=== PATIENT | male | born 1965 | race Two or more races ===

== ENCOUNTER 2025-04-14 12:35 | Day surgery (SDC) | payer MEDICAID, SELFPAY ==
--- NOTE | 2025-04-13 12:53 | ESHP_ITS ---
RE: ROGER QUEZADA : 1965 DATE OF ADMISSION: 04/14/2025 HISTORY OF PRESENT ILLNESS: This patient is a 60-year-old male who was seen for colonoscopy. The patient was seen in [facility] in February. The patient denies any history of colon cancer in the family. He does have some occasional rectal bleeding. The patient denies any hemorrhoids. His other medical problem consists of diabetes and hypertension. PAST SURGICAL HISTORY: None. SOCIAL HISTORY: The patient is working in a restaurant. PHYSICAL EXAMINATION: GENERAL: Well-built, well-nourished male who appeared to be in his stated age. HEENT: Head is normal. Eyes, ears, nose, and throat are normal. NECK: Normal. Thyroid normal. LUNGS: Revealed good breath sounds on both sides. No wheezing or rales. HEART: Heart showed sinus rhythm. No murmurs. VITAL SIGNS: Revealed that he is about 5 feet 4 inches tall, weighing 180 pounds, and BMI is 30.18. Temperature was 98.4, pulse 102, BP was 147/93. IMPRESSION: 1. Encounter for malignant neoplasm. 2. Diabetes. 3. Hypertension. COURSE OF ACTION: I advised the patient to undergo colonoscopy. Procedure was explained to him in detail using an tripper and the patient is agreeable. DT: 12:26:07 TT: 12:50:00 Ref: [id number] - TID: [id number]
[2025-04-14] VITALS (12 sets, daily range): BP systolic 100–197; BP diastolic 66–119; PULSE 67–86; RESP 11–24; TEMP 36.4–37; O2SAT 93–98; BMI 30.9
[2025-04-14] MEDS: RINGERS LACTATED 1000 ML 1,000 ML 100 ML IV (14:30)
[2025-04-14] MEDS: hydrALAZINE INJ 20 MG/ML VIAL 10 MG IVP (14:36)
[2025-04-14] MEDS: fentaNYL CIT INJ 50 mCg/ML AMP 2ML (ASD USE ONLY) IVP (14:42)
[2025-04-14] MEDS: DiphenhydrAMINE INJ 50 MG/ML VIAL 25 MG IVP (14:45)
[2025-04-14] MEDS: MIDAZOLAM INJ 1 MG/ML VIAL 2 ML (ASD USE ONLY) 2 MG IVP (14:48)
--- NOTE | 2025-04-14 16:07 | SUR.PHASEII ---
pt resting in wheelchair waiting for family to arrive. pt tolerating fluids well no c/o pain or nausea. pts had been called since 1519 but unable to get a hold of her. this nurse tried multiple times to contact pts but was unable to contact her. pt contacted at 1541 and stated she would be on her way. pt resting in wheelchair using cellphone, pt denies pain, tolerating PO fluids well. waiitng in to arrive for discharge.
--- NOTE | 2025-04-14 16:21 | SUR.PHASEII ---
pt arrived, d/c instructions given to pt and . no questions or concerns vocalized.
== END 2025-04-14 16:20 | disposition home or self-care (01) ==
PROVIDERS: PCP Family Medicine; Referring Provider Surgery; Visit Provider Surgery
PROC: 0DBE8ZX Excision of Large Intestine, Via Natural or Artificial Opening Endoscopic, Diagnostic (ICD-10-PCS; CPT 45380; principal; 2025-04-14 14:30)
DX: K62.5 Hemorrhage of anus and rectum (principal); E11.9 Type 2 diabetes mellitus without complications; I10 Essential (primary) hypertension
CPT/HCPCS: 45378; J0360; J1200; J2250; J3010; J7120